=== PATIENT | male | born 1940 | race Caucasian/White ===

== ENCOUNTER 2024-04-04 11:10 | Emergency (ER) | payer MEDICARE ==
[~2024-04-04] VITALS: Ht 180.3 cm; Wt 93.4 kg
[2024-04-04] MEDS ORDERED: ONDANSETRON HCL/PF 4 MG/2 ML VIAL ONE (11:56)
[2024-04-04] MEDS ORDERED: MORPHINE SULFATE INJ 2 MG/ML DISP.SYRIN ONE (11:57)
[2024-04-04] MEDS: MORPHINE SULFATE INJ 2 MG/ML DISP.SYRIN IV ONE (12:13)
[2024-04-04] MEDS: ONDANSETRON HCL/PF 4 MG/2 ML VIAL IVP ONE (12:14)
[2024-04-04 14:03] VITALS: BP 144/58; TEMP 98.2; O2SAT 99
== END 2024-04-04 14:03 | disposition home or self-care (01) ==
LOC: ER 11:15
DX: S42.252A Displaced fracture of greater tuberosity of left humerus, initial encounter for closed fracture (principal); S09.90XA Unspecified injury of head, initial encounter; W01.0XXA Fall on same level from slipping, tripping and stumbling without subsequent striking against object, initial encounter; M25.511 Pain in right shoulder; Y93.89 Activity, other specified; Y92.89 Other specified places as the place of occurrence of the external cause; Y99.8 Other external cause status
CPT/HCPCS: 99284; 96374; 96375; 73030; J2405; J2270